=== PATIENT | female | born 1985 | race American Indian/Alaskan Native ===

== ENCOUNTER 2018-12-07 15:06 | Emergency (ER) | payer MEDICAID, OTHER ==
--- NOTE | 2018-12-07 15:16 | Event Note ---
ED Screening Note ED Screening Note: lower abd pain worried about her irregular menses This initial assessment/diagnostic orders/clinical plan/treatment(s) is/are subject to change based on patients health status, clinical progression and re- assessment by fellow clinical providers in the ED. Further treatment and workup at subsequent clinical providers discretion. Patient/guardian urged not to elope from the ED as their condition may be serious if not clinically assessed and managed. Initial orders include: ua preg
[2018-12-07 16:04] VITALS: BP 123/59
[2018-12-07 16:38] LABS: HCG Qualitative,Urine Positive (Negative)
[2018-12-07 16:43] LABS: Bacteria,Urine 1+ /HPF (Negative); Bilirubin,Urine NEG (Negative); Blood,Urine SM (Negative); Color,Urine Yellow (Yellow); Mucus,Urine FEW /HPF
[2018-12-07 18:29] LABS: Hemoglobin 12.9 gm/dl (10.1-14.3); Mean Corpuscular HGB Conc 33 % (30-34); Mean Corpuscular Volume 86 fl (79-97); Platelet Count 180 K/mm3 (140-440); Red Blood Count 4.52 M/mm3 (3.65-5.03); Red Cell Distribution Width 14.1 % (13.2-15.2)
[2018-12-07 18:49] LABS: BUN/Creatinine Ratio 13; Blood Urea Nitrogen 10 mg/dL (7-17); Calcium 8.9 mg/dL (8.4-10.2); Hemolysis Index 14
--- NOTE | 2018-12-07 18:58 | Ultrasound Report ---
PROCEDURE: US OB TRANSVAGINAL TECHNIQUE: Obstetrical ultrasound transvaginal HISTORY: vag bleed preg COMPARISONS: FINDINGS: Uterus measures 9.2 x 5.3 x 6.1 cm. No gestational sac identified within the uterus. Endometrial stri pe is 1.01 cm. No myometrial abnormality is seen. There is small amount of free fluid noted in the cul-de-sac Right ovary 2.1 x 2.2 x 3.7 cm Left ovary is 3.6 x 2.0 x 3.8 cm. There is complex structure within the left ovary 1.6 x 1.6 cm possi chloe resolving cyst small amount of adjacent free fluid. IMPRESSION: No intrauterine gestation identified. Complex partially cystic structure within the left ovary Small amount of free fluid in the cul-de-sac and left adnexa Occult ectopic cannot be excluded. Could be very early IUP or recent spontaneous AB. Continued follow -up with serial beta hCG recommended. This document is electronically signed by Hussein Mix MD., December 07 2018 06:56:22 PM ET
--- NOTE | 2018-12-07 19:00 | Ultrasound Report ---
PROCEDURE: US OB <= 14 WEEKS FETUS TECHNIQUE: HISTORY: vag bleed preg COMPARISONS: FINDINGS: Uterus measures 9.2 x 5.3 x 6.1 cm. No gestational sac identified within the uterus. Endometrial stri pe is 1.01 cm. No myometrial abnormality is seen. There is small amount of free fluid noted in the cul-de-sac Right ovary 2.1 x 2.2 x 3.7 cm Left ovary is 3.6 x 2.0 x 3.8 cm. There is complex structure within the left ovary 1.6 x 1.6 cm possi chloe resolving cyst small amount of adjacent free fluid. IMPRESSION: No intrauterine gestation identified. Complex partially cystic structure within the left ovary Small amount of free fluid in the cul-de-sac and left adnexa Occult ectopic cannot be excluded. Could be very early IUP or recent spontaneous AB. Continued follow -up with serial beta hCG recommended. . This document is electronically signed by Hussein Mix MD., December 07 2018 06:58:14 PM ET
[2018-12-07] MEDS ORDERED: ROCEPHIN IM ONE (21:10)
[2018-12-07] MEDS ORDERED: XYLOCAINE 1% MPF 5 mL INFILTRATI ONE (21:11)
[2018-12-07] MEDS ORDERED: ZITHROMAX PO ONE (21:11)
--- NOTE | 2018-12-07 21:17 | Emergency Department Report ---
ED Female HPI - General Chief complaint: Abdominal Pain Stated complaint: ABD PAIN/BLOOD IN URINE Time Seen by Provider: 12/07/18 15:15 Source: patient Mode of arrival: Ambulatory Limitations: No Limitations - History of Present Illness Initial comments: Patient is a 33 y/o aaf G1, P1, A0, who presents for dysuria frequency and urgency x 1 week LMP 6 weeks ago, pt denies vaginal bleeding no discharge no fever no n/v,. Complaint: dysuria Onset/Timin -: week(s) Radiation: suprapubic Severity: moderate Severity scale (0 -10): 4 Quality: cramping Consistency: intermittent Improves with: none Worsens with: urination Are you Now?: No Last Menstrual Period: 10/24/18 EDC: 07/31/19 Associated Symptoms: dysuria - Related Data Sexually active: Yes : 1 Para: 1 A: 0 Previous Rx's Medication Instructions Recorded Last Taken Type Cyclobenzaprine [Flexeril] 10 mg PO TID PRN #30 tablet 04/24/18 Unknown Rx Menthol/Camphor [Kopperl Streator 1 applic TP TID PRN #1 tube 04/24/18 Unknown Rx Ointment] Naproxen [Naprosyn TAB] 500 mg PO BID PRN #30 tablet 04/24/18 Unknown Rx Acetaminophen [Acetaminophen TAB] 650 mg PO Q6HR PRN #30 tablet 12/07/18 Unknown Rx Nitrofurantoin [place]/M-Cryst 100 mg PO BID 7 Days #14 capsule 12/07/18 Unknown Rx [Macrobid CAP] metroNIDAZOLE [metroNIDAZOLE 1 applicatio VG QHS 10 Days #1 tube 12/07/18 Unknown Rx VAGINAL 0.75% gel] Allergies Allergy/AdvReac Type Severity Reaction Status Date / Time amoxicillin Allergy Unknown Verified 04/23/18 21:05 Penicillins Allergy Unknown Verified 04/23/18 21:05 ED Review of Systems ROS: Stated complaint: ABD PAIN/BLOOD IN URINE Other details as noted in HPI Constitutional: denies: chills, fever Eyes: denies: eye pain, eye discharge, vision change ENT: denies: ear pain, throat pain Respiratory: no symptoms reported Cardiovascular: denies: chest pain, palpitations Endocrine: no symptoms reported Gastrointestinal: denies: abdominal pain, nausea, vomiting, diarrhea, melena Genitourinary: urgency, dysuria, frequency. denies: hematuria, discharge, dyspareunia Musculoskeletal: back pain. denies: joint swelling, arthralgia Skin: as per HPI Neurological: as per HPI Psychiatric: denies: anxiety, depression Hematological/Lymphatic: denies: easy bleeding, easy bruising ED Past Medical Hx - Past Medical History Hx Asthma: Yes - Social History Smoking Status: Never Smoker Substance Use Type: None - Medications Home Medications: Home Medications Medication Instructions Recorded Confirmed Last Taken Type Cyclobenzaprine [Flexeril] 10 mg PO TID PRN #30 tablet 04/24/18 Unknown Rx Menthol/Camphor [Kopperl Streator 1 applic TP TID PRN #1 tube 04/24/18 Unknown Rx Ointment] Naproxen [Naprosyn TAB] 500 mg PO BID PRN #30 tablet 04/24/18 Unknown Rx Acetaminophen [Acetaminophen TAB] 650 mg PO Q6HR PRN #30 tablet 12/07/18 Unknown Rx Nitrofurantoin [place]/M-Cryst 100 mg PO BID 7 Days #14 capsule 12/07/18 Unknown Rx [Macrobid CAP] metroNIDAZOLE [metroNIDAZOLE 1 applicatio VG QHS 10 Days #1 tube 12/07/18 Unknown Rx VAGINAL 0.75% gel] ED Physical Exam - General Limitations: No Limitations General appearance: alert, in no apparent distress - Head Head exam: Present: atraumatic, normocephalic - Eye Eye exam: Present: normal appearance, PERRL, EOMI Pupils: Present: normal accommodation - ENT ENT exam: Present: mucous membranes moist - Neck Neck exam: Present: normal inspection. Absent: tenderness, full ROM, lymphadenopathy, thyromegaly - Respiratory Respiratory exam: Present: normal lung sounds bilaterally. Absent: wheezes, stridor, chest wall tenderness - Cardiovascular Cardiovascular Exam: Present: regular rate, normal rhythm, normal heart sounds. Absent: systolic murmur, diastolic murmur, rubs, gallop - GI/Abdominal GI/Abdominal exam: Present: soft, normal bowel sounds. Absent: distended, tenderness, bruit, hernia - Rectal Rectal exam: Present: deferred - External exam: Present: other (deferred) - Extremities Exam Extremities exam: Present: normal inspection, full ROM, normal capillary refill - Back Exam Back exam: Present: normal inspection, full ROM. Absent: tenderness, CVA tenderness (R), CVA tenderness (L), muscle spasm, paraspinal tenderness, vertebr al tenderness, rash noted - Neurological Exam Neurological exam: Present: alert, oriented X3, CN II-XII intact, normal gait, reflexes normal - Psychiatric Psychiatric exam: Present: normal affect, normal mood - Skin Skin exam: Present: warm, dry, intact, normal color. Absent: rash ED Course Vital Signs 12/07/18 16:02 Temperature 98.3 F Pulse Rate 89 Respiratory 16 Rate Blood Pressure 123/59 O2 Sat by Pulse 97 Oximetry ED Medical Decision Making - Lab Data Result diagrams: 12/07/18 18:16 12/07/18 18:16 Lab Results 12/07/18 12/07/18 12/07/18 Range/Units 18:16 18:16 18:16 WBC 8.3 (4.5-11.0) K/mm3 RBC 4.52 (3.65-5.03) M/mm3 Hgb 12.9 (10.1-14.3) gm/dl Hct 39.0 (30.3-42.9) % MCV 86 (79-97) fl MCH 29 (28-32) pg MCHC 33 (30-34) % RDW 14.1 (13.2-15.2) % Plt Count 180 (140-440) K/mm3 Sodium 136 L (137-145) mmol/L Potassium 3.6 (3.6-5.0) mmol/L Chloride 100.3 (98-107) mmol/L Carbon Dioxide 24 (22-30) mmol/L Anion Gap 15 mmol/L BUN 10 (7-17) mg/dL Creatinine 0.8 (0.7-1.2) mg/dL Estimated GFR > 60 ml/min BUN/Creatinine Ratio 13 % Glucose 128 H (65-100) mg/dL Calcium 8.9 (8.4-10.2) mg/dL HCG, Quant 169.6 H (0-4) mIU/mL Urine Color (Yellow) Urine Turbidity (Clear) Urine pH (5.0-7.0) Ur Specific [place] (1.003-1.030) Urine Protein (Negative) mg/dL Urine Glucose (UA) (Negative) mg/dL Urine Ketones (Negative) mg/dL Urine Blood (Negative) Urine Nitrite (Negative) Ur Reducing Substances Urine Bilirubin (Negative) Urine Ictotest Urine Urobilinogen (<2.0) mg/dL Ur Leukocyte Esterase (Negative) Urine WBC (Auto) (0.0-6.0) /HPF Urine RBC (Auto) (0.0-6.0) /HPF U Epithel Cells (Auto) (0-13.0) /HPF Urine Bacteria (Auto) (Negative) /HPF Urine Mucus /HPF Urine HCG, Qual (Negative) Blood Type 12/07/18 12/07/18 Range/Units 18:16 Unknown WBC (4.5-11.0) K/mm3 RBC (3.65-5.03) M/mm3 Hgb (10.1-14.3) gm/dl Hct (30.3-42.9) % MCV (79-97) fl MCH (28-32) pg MCHC (30-34) % RDW (13.2-15.2) % Plt Count (140-440) K/mm3 Sodium (137-145) mmol/L Potassium (3.6-5.0) mmol/L Chloride (98-107) mmol/L Carbon Dioxide (22-30) mmol/L Anion Gap mmol/L BUN (7-17) mg/dL Creatinine (0.7-1.2) mg/dL Estimated GFR ml/min BUN/Creatinine Ratio % Glucose (65-100) mg/dL Calcium (8.4-10.2) mg/dL HCG, Quant (0-4) mIU/mL Urine Color Yellow (Yellow) Urine Turbidity Cloudy (Clear) Urine pH 7.0 (5.0-7.0) Ur Specific [place] 1.020 (1.003-1.030) Urine Protein 30 mg/dl (Negative) mg/dL Urine Glucose (UA) Neg (Negative) mg/dL Urine Ketones Neg (Negative) mg/dL Urine Blood Sm (Negative) Urine Nitrite Neg (Negative) Ur Reducing Substances Not Reportable Urine Bilirubin Neg (Negative) Urine Ictotest Not Reportable Urine Urobilinogen 2.0 (<2.0) mg/dL Ur Leukocyte Esterase Sm (Negative) Urine WBC (Auto) 107.0 H (0.0-6.0) /HPF Urine RBC (Auto) 18.0 (0.0-6.0) /HPF U Epithel Cells (Auto) 2.0 (0-13.0) /HPF Urine Bacteria (Auto) 1+ (Negative) /HPF Urine Mucus Few /HPF Urine HCG, Qual Positive A (Negative) Blood Type O POSITIVE - Radiology Data Radiology results: report reviewed, image reviewed Ordering Physician: JERMAINE HE[facility] Date of Service: 12/07/18 Procedure(s): US OB <= 14 weeks fetus Accession Number(s): [id number] cc: JERMAINE [facility] PROCEDURE: US OB <= 14 WEEKS FETUS TECHNIQUE: HISTORY: vag bleed preg COMPARISONS: FINDINGS: Uterus measures 9.2 x 5.3 x 6.1 cm. No gestational sac identified within the uterus. Endometrial stripe is 1.01 cm. No myometrial abnormality is seen. There is small amount of free fluid noted in the cul-de-sac Right ovary 2.1 x 2.2 x 3.7 cm Left ovary is 3.6 x 2.0 x 3.8 cm. There is complex structure within the left ovary 1.6 x 1.6 cm possibly resolving cyst small amount of adjacent free fluid. IMPRESSION: No intrauterine gestation identified. Complex partially cystic structure within the left ovary Small amount of free fluid in the cul-de-sac and left adnexa Occult ectopic cannot be excluded. Could be very early IUP or recent spontaneous AB. Continued follow-up with serial beta hCG recommended. . This document is electronically signed by Hussein Novak MD., December 07 2018 06:58:14 PM ET Transcribed By: [facility] Dictated By: ALMA DELIA NOVAK MD Electronically Authenticated By: ALMA DELIA NOVAK MD Signed Date/Time: 12/07/181899 DD/ 04 TD/TT: 12/07/181804 Ordering Physician: JERMAINE HEART Date of Service: 12/07/18 Procedure(s): US OB transvaginal Accession Number(s): [id number] cc: [facility]MA[facility] PROCEDURE: US OB TRANSVAGINAL TECHNIQUE: Obstetrical ultrasound transvaginal HISTORY: vag bleed preg COMPARISONS: FINDINGS: Uterus measures 9.2 x 5.3 x 6.1 cm. No gestational sac identified within the uterus. Endometrial stripe is 1.01 cm. No myometrial abnormality is seen. There is small amount of free fluid noted in the cul-de-sac Right ovary 2.1 x 2.2 x 3.7 cm Left ovary is 3.6 x 2.0 x 3.8 cm. There is complex structure within the left ovary 1.6 x 1.6 cm possibly resolving cyst small amount of adjacent free fluid. IMPRESSION: No intrauterine gestation identified. Complex partially cystic structure within the left ovary Small amount of free fluid in the cul-de-sac and left adnexa Occult ectopic cannot be excluded. Could be very early IUP or recent spontaneous AB. Continued follow-up with serial beta hCG recommended. This document is electronically signed by Hussein Novak MD., December 07 2018 06:56:22 PM ET Transcribed By: ELSIE Dictated By: ALMA DELIA NOVAK MD Electronically Authenticated By: ALMA DELIA NOVAK MD Signed Date/Time: 12/07/181857 DD/ 02 TD/TT: 12/07/181803 - Medical Decision Making consulted OBGYN Dr. England reference US/ pos HC.3 recommendation follow up outpt in 2 days , discussed same with patient including pelvic rest, vaginal bleeding , fever chills n/v , pt will follow up in 2 day at [facility], pt dc'd to home in stable condition at this time. Critical care attestation.: If time is entered above; I have spent that time in minutes in the direct care of this critically ill patient, excluding procedure time. ED Disposition Clinical Impression: Positive test, Threatened miscarriage UTI (urinary tract infection) Qualifiers: Urinary tract infection type: acute cystitis Hematuria presence: without hematuria Qualified Code(s): N30.00 - Acute cystitis without hematuria Disposition: DC-01 TO HOME OR SELFCARE Is pt being admited?: No Does the pt Need Aspirin: No (exam) Condition: Stable Instructions: Abdominal Pain (ED), Urinary Tract Infection in Women (ED), Dysuria (ED), Threatened Miscarriage (ED) Additional Instructions: follow up with OBGYN in 1-2 days return to ed if symptoms worsen Prescriptions: metroNIDAZOLE [metroNIDAZOLE VAGINAL 0.75% gel] 1 applicatio VG QHS 10 Days #1 tube Acetaminophen [Acetaminophen TAB] 650 mg PO Q6HR PRN #30 tablet PRN Reason: Pain Nitrofurantoin [place]/M-Cryst [Macrobid CAP] 100 mg PO BID 7 Days #14 capsule Referrals: AREN CHAUDHARI MD [Staff Physician] - 3-5 Days Forms: Work/School Release Form(ED), AMA Form Time of Disposition: 22:26
== END 2018-12-07 21:54 | disposition home or self-care (01) ==
LOC: ED 15:06
DX: O20.0 Threatened abortion (principal); O23.11 Infections of bladder in pregnancy, first trimester; Z3A.01 Less than 8 weeks gestation of pregnancy; Z88.1 Allergy status to other antibiotic agents; Z88.0 Allergy status to penicillin
CPT/HCPCS: 36415; 76801; 76817; 80048; 81001; 81025; 84702; 85027; 86900; 86901; 96372; 99284; J0696